=== PATIENT | female | born 1995 | race Two or more races ===

== ENCOUNTER 2017-01-03 17:11 | Emergency (ER) | payer SELFPAY ==
[~2017-01-03] VITALS: Ht 162.6 cm; Wt 77.1 kg
[2017-01-03 19:13] VITALS: BP 120/69
== END 2017-01-03 19:54 | disposition home or self-care (01) ==
LOC: ER 17:22
DX: J40 Bronchitis, not specified as acute or chronic (principal)

== ENCOUNTER 2017-02-27 14:15 | Emergency (ER) | payer MEDICAID ==
[~2017-02-27] VITALS: Ht 162.6 cm; Wt 77.1 kg
[2017-02-27 15:10] VITALS: BP 147/85
[2017-02-27] MEDS ORDERED: TETANUS-DIPTH-ACEL PERTUSSIS 0.5ML SYRG IM ONE (15:45)
[2017-02-27] MEDS ORDERED: cefTRIAXone SOD 1,000 MG VL IM ONE (15:45)
== END 2017-02-27 16:04 | disposition home or self-care (01) ==
LOC: ER 14:15
DX: S61.451A Open bite of right hand, initial encounter (principal); S61.431A Puncture wound without foreign body of right hand, initial encounter; W54.0XXA Bitten by dog, initial encounter; Y93.89 Activity, other specified; Y99.8 Other external cause status; Y92.89 Other specified places as the place of occurrence of the external cause; Z23 Encounter for immunization
CPT/HCPCS: 90471; 90715; 96372; 99284; J0696

== ENCOUNTER 2024-02-20 10:21 | Emergency (ER) | payer MEDICAID, OTHER ==
[~2024-02-20] VITALS: Ht 162.6 cm; Wt 79.5 kg
[2024-02-20 13:36] VITALS: BP 132/68; RESP 16; TEMP 98.2; O2SAT 98
[2024-02-20 13:47] LABS: Basophils # (auto) 0.1 10 ^3/uL (0-0.2); Basophils % (auto) 0.7 % (0.0-2.0); Eosinophils # (auto) 0.6 10 ^3/uL (0-0.8); Hematocrit 39.6 % (36.0-46.0); Hemoglobin 12.9 g/dL (12.2-16.2); Lymphocytes # (auto) 1.7 10 ^3/uL (0.4-5.4); Lymphocytes % (auto) 21.8 % (10.0-50.0); Mean Corpuscular Hemoglobin 27.6 pg (28.0-32.0); Mean Corpuscular Hgb Conc. 32.6 g/dL (32.0-36.0); Mean Corpuscular Volume 84.8 fL (80.0-100.0); Monocytes # (auto) 0.7 10 ^3/uL (0-1.3); Monocytes % (auto) 8.7 % (0.0-12.0); Neutrophils # (auto) 4.7 10 ^3/uL (1.6-8.6); Neutrophils % (auto) 60.8 % (37.0-80.0); Nucleated Red Blood Cells % 0.1 %; Red Blood Cells 4.68 10^6/uL (4.0-5.20); Red Cell Distribution Width 14.1 % (11.8-14.3); White Blood Cell 7.8 10^3/uL (4.4-10.8)
[2024-02-20 13:55] LABS: Chloride 108 mmol/L (98-107); Potassium 4.5 mmol/L (3.5-5.1); Sodium 140 mmol/L (136-145)
[2024-02-20 13:56] LABS: Anion Gap 6 (5-15); Carbon Dioxide 26 mmol/L (20-30)
[2024-02-20 13:57] LABS: Calcium 9.2 mg/dL (8.5-10.1)
[2024-02-20 14:01] LABS: BUN/Creatinine Ratio 11.8 (10.0-20.0); Blood Urea Nitrogen 9 mg/dL (9-23); Glucose 92 mg/dL (74-106)
[2024-02-20 14:16] LABS: Urine Bacteria None Seen /hpf (None Seen)
[2024-02-20 14:42] VITALS: PULSE 72
[2024-02-20 14:51] LABS: Urine Blood 1+ /uL (Negative); Urine Clarity Clear (Clear); Urine Color Light-Yellow (Yellow); Urine Mucus FEW (None Seen); Urine Protein, UAD Negative (Negative); Urine Urobilinogen Normal (Negative); Urine WBC 1 /hpf (0 - 5)
== END 2024-02-20 14:30 | disposition home or self-care (01) ==
LOC: ER 10:21
DX: R53.81 Other malaise (principal); R53.83 Other fatigue
CPT/HCPCS: 36415; 80048; 81001; 82962; 85025; 93005

== ENCOUNTER 2024-05-03 05:16 | Emergency (ER) | payer OTHER ==
[~2024-05-03] VITALS: Ht 160 cm; Wt 78.4 kg
[2024-05-03 05:43] VITALS: BP 124/79; PULSE 90; RESP 12; TEMP 98.3
[2024-05-03] MEDS ORDERED: CLOB0.05 TOP (06:40)
[2024-05-03 06:56] VITALS: O2SAT 99
== END 2024-05-03 07:11 | disposition home or self-care (01) ==
LOC: ER 05:16
DX: L30.1 Dyshidrosis [pompholyx] (principal)

== ENCOUNTER 2024-11-12 00:35 | Emergency (ER) | payer SELFPAY ==
[~2024-11-12 00:35] MED LIST: CLOB0.05 TOP
[2024-11-12] MEDS: methylPREDNISolone SOD SUCC 125 MG/2 ML VL IM ONE (00:56)
--- NOTE | 2024-11-12 00:56 | ED.PDOC ---
History of Present Illness HPI Comments 29 y/o F, with a Hx of asthma, presents with c/o shortness of breath and nonproductive cough, today. Patient endorses on additional sudden onset of difficulty breathing, this morning, following onset of cough that began, last night. She comments no relief or improvement with nebulizer use at-home and reports last asthma flare up 1x month ago. She denies having any chest pain, fever, chills, congestion, headache, or other associated symptoms at this time. Chief Complaint: Shortness of Breath Time Seen by MD: 00:50 Primary Care Provider: NONE Reviewed Notes: Nurses Notes, Medications, Allergies Allergies: Coded Allergies: NO KNOWN ALLERGIES (Unverified , 01/03/17) Home Meds Active Scripts Clobetasol Propionate (Clobetasol Propionate) 0.05 % Oin, 1 APPLIC TOP BID, #30 GRAMS Prov:BARBY DAVISON 05/03/24 Information Source: Patient Mode of Arrival: Ambulatory Severity: Moderate Timing: Hours Duration: Since onset Prehospital treatment: None Past Medical History PAST MEDICAL HISTORY: Asthma Surgical History: Denies all surgeries FUNERAL LIMOUSINE DRIVER History: No Pertinent FUNERAL LIMOUSINE DRIVER History Family History Family History: Reviewed,noncontributory to illness Social History Smoker: Non-Smoker Alcohol: Denies ETOH Use Drugs: Denies Drug Use Lives In: Home Respiratory: reports: cough, shortness of breath All Other Systems: Reviewed and Negative (negative unless otherwise stated above or in HPI) Physical Exam General Appearance: No Apparent Distress, Normal HEENT: Normal ENT Inspection, Pharynx Normal, TMs Normal Neck: Full Range of Motion, Non-Tender, Normal, Normal Inspection Respiratory: Chest Non-Tender, Lungs Clear, No Accessory Muscle Use, No Respiratory Distress, Normal Breath Sounds Cardiovascular: No Edema, No JVD, No Murmur, No Gallop, Normal Peripheral Pulses, Regular Rate/Rhythm Breast Exam: Deferred Gastrointestinal: No Organomegaly, Non Tender, No Pulsatile Mass, Normal Bowel Sounds, Soft Genitalia: Deferred Pelvic: Deferred Rectal: Deferred Extremities: No calf tenderness, Normal capillary refill, Normal inspection, Normal range of motion, Non-tender, No pedal edema Musculoskeletal : Apperance: Normal Neurologic: Alert, water quality tester II-XII nml as Tested, No Motor Deficits, Normal Affect, Normal Mood, No Sensory Deficits Cerebellar Function: Normal Reflexes: Normal Skin: Dry, Normal Color, Warm Lymphatic: No Adenopathy Was a procedure done? Was a procedure done?: No Differential Dx Considerations may include: URI, viral syndrome, bronchitis, pleural effusions X-Ray, Labs, Meds, VS Vital Signs Date Time Temp Pulse Resp B/P (MAP) Pulse Ox O2 Delivery O2 Flow Rate FiO2 11/12/24 00:56 97 Room Air* 0 21 11/12/24 00:56 97.8 131 24 135/81 (99) 97 Current Medications Medications (Trade) Dose Ordered Sig/Sky Route Start Time Stop Time Status Last Admin Methylprednisolone Sodium Succinate (Solu Medrol) 125 mg ONCE ONCE IM 11/12/24 01:00 11/12/24 01:01 DC 11/12/24 00:56 X-Ray, Labs, Meds, VS Comment Imaging: X-rays and CT scans were reviewed and interpreted by this provider, imaging shows no fractures and no pathological disease. Pending radiology review. Laboratory: Labs reviewed and interpreted by this provider. No significant abnormalities noted. Patient has prior medical visits reviewed. Med reconciliation performed Vital signs reviewed Time of 1ST Reevaluation: 01:20 Reevaluation 1ST: Unchanged Patient Education/Counseling: Diagnosis, Treatment, Need For Follow Up (Patient advised to follow-up in the emergency room in the next 24 to 48 hours if symptoms do not improve. Advised follow-up with PCP in the next 3 to 5 days. Patient verbalized understanding. ) Family Education/Counseling: No Family Present Departure 1 Departure Time of Disposition: 01:43 Impression: Primary Impression: Asthma Qualified Codes: J45.20 - Mild intermittent asthma, uncomplicated Disposition: HOME / SELF CARE / HOMELESS Condition: Fair e-Prescriptions Promethazine-Dm (Promethazine Dm 6.25-15 mg/5Ml) 1 Marsha Marsha 5 ML PO TID, #240 ML Prov: NENITA AGUILARP 11/12/24 Prednisone (Prednisone) 20 Mg Tab 40 MG PO DAILY for 5 Days, #10 MG Prov: NENITA AGUILAR RIVET THROWER 11/12/24 Discharged With: Self Critical Care Note Critical Care Time?: No Stability Stability form required: No Heart Score Heart Score: Heart Score Response (Comments) Value History N/A 0 EKG N/A 0 Age N/A 0 Risk Factors N/A 0 Troponin N/A 0 Total 0 I personally scribed for NENITA AGUILAR ([email or web address]) on 11/12/24 at 00:56. Electronically submitted by Maninder Mi ([email or web address]). I personally scribed for NENITA AGUILAR ([email or web address]) on 11/12/24 at 00:57. Electronically submitted by Maninder Mi ([email or web address]). NENITA AGUILAR Nov 12, 2024 00:56
--- NOTE | 2024-11-12 01:25 | DVH ---
CHEST RADIOGRAPH Indication: sob Technique: Single frontal view of the chest was obtained Comparison: None FINDINGS: Lines and Tubes: None Lungs: Clear Pleura: No effusion. No pneumothorax. Cardiomediastinal contours: Unremarkable Bones: Unremarkable IMPRESSION: 1. Clear lungs.
[2024-11-12] MEDS ORDERED: PRED20TA2 PO (01:45)
[2024-11-12] MEDS ORDERED: PROM1SOL4 PO (01:45)
[2024-11-12 01:48] VITALS: BP 135/81; PULSE 131; RESP 24; TEMP 97.8; O2SAT 97
[2024-11-12] MEDS: LEVALBUTEROL HCL 1.25 MG/3 ML NEB NEB ONE (02:22)
[2024-11-12 02:35] VITALS: BP 126/77; PULSE 115; RESP 20; O2SAT 95
[2024-11-12] MEDS ORDERED: LEVALBUTEROL HCL 1.25 MG/3 ML NEB NEB SCH (06:00)
== END 2024-11-12 02:37 | disposition home or self-care (01) ==
LOC: ER 00:35
DX: J45.909 Unspecified asthma, uncomplicated (principal)
CPT/HCPCS: 71045; 94640; 96372; 99283; J2919